=== PATIENT | female | born 1985 | race Two or more races ===

== ENCOUNTER 2016-08-14 19:48 | Emergency (ER) | payer OTHER ==
[~2016-08-14] VITALS: Ht 165.1 cm; Wt 68.0 kg
[2016-08-14 20:07] VITALS: BP 145/80
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
[2016-08-14] MEDS ORDERED: CYCLOBENZAPRINE10 MG ORAL ×2 (20:44→21:14)
[2016-08-14] MEDS ORDERED: IBUPROFEN600 MG ORAL ×2 (20:44→21:14)
[2016-08-14] MEDS ORDERED: Ketorolac 60mg Inj IM ONE (20:45)
[2016-08-14 21:00] VITALS: BP 145/80
== END 2016-08-14 21:00 | disposition home or self-care (01) ==
LOC: EMR 20:28
DX: M62.830 Muscle spasm of back (principal); V43.62XA Car passenger injured in collision with other type car in traffic accident, initial encounter; Y92.410 Unspecified street and highway as the place of occurrence of the external cause
CPT/HCPCS: 96372; 99284